=== PATIENT | female | born 1955 | race Caucasian/White ===

== ENCOUNTER → 2017-08-01 | Outpatient (REF) | payer OTHER | LOC: M SFHCPLAZ 13:52 | DX: Z53.8 Procedure and treatment not carried out for other reasons (principal); E78.1 Pure hyperglyceridemia; R73.09 Other abnormal glucose ==

== ENCOUNTER → 2017-09-11 | Outpatient (CLI) | payer OTHER ==
--- NOTE | 2017-09-11 17:23 | REPMRS ---
Patient History The patient states she has not had a clinical breast exam in over a year. Baseline Mammogram Patient is postmenopausal. Digital Woman Screen Mammo: September 11, 2017 - Exam #: [id number] Bilateral CC and MLO view(s) were taken. Technologist: Kim Jordan, Technologist FINDINGS: There are scattered fibroglandular densities. Baseline exam. There is a mild amount of residual fibroglandular tissue which is fairly symmetric. There is no dominant mass, architectural distortion, or clustered microcalcification suggestive of malignancy. There is a benign appearing intramammary node in the upper outer quadrant of the left breast. Scattered lymph nodes are seen in the axillae. ASSESSMENT: BI-RADS/ACR category 2 mammogram. Benign finding(s). Recommendation Routine screening mammogram in 1 year (for women over age 40). This mammogram was interpreted with the aid of an FDA-approved computer-aided dectection system. A. Negative x-ray reports should not delay biopsy if a dominant or clinically suspicious mass is present. B. Four to eight percent of cancers are not identified by mammography. C. Adenosis and dense breast may obscure an underlying neoplasm. Electronically Signed By: Peng Coreas MD 09/11/17 [id number]
== END ==
LOC: M WHC 13:35
DX: Z12.31 Encounter for screening mammogram for malignant neoplasm of breast (principal); Z78.0 Asymptomatic menopausal state

== ENCOUNTER 2022-05-03 15:46 | Emergency (ER) | payer MEDICARE, OTHER ==
[~2022-05-03] VITALS: Ht 165.1 cm; Wt 77.3 kg
[2022-05-03 16:54] LABS: BASO % 0.3 % (0.0-1.0); HEMATOCRIT 45.5 % (36.0-47.0); HEMOGLOBIN 15.4 g/dl (12.0-15.5); LYMPH # 0.8 10^3/uL (1.5-5.0); LYMPH % 6.6 % (24.0-44.0); MEAN CORPUSCULAR HEMOGLOBIN 28.9 pg (27.0-33.0); MEAN CORPUSCULAR HGB CONC 33.8 g/dl (32.0-36.5); MEAN CORPUSCULAR VOLUME 85.5 fl (80.0-96.0); MONO # 0.4 10^3/uL (0.0-0.8); NEUTROPHILS # 10.7 10^3/uL (1.5-8.5); NEUTROPHILS % 88.9 % (36.0-66.0); PLATELET COUNT, AUTOMATED 310 10^3/uL (150-450); RED BLOOD COUNT 5.32 10^6/uL (4.00-5.40); WHITE BLOOD COUNT 12.1 10^3/uL (4.0-10.0)
[2022-05-03] MEDS ORDERED: GI COCKTAIL 50ML BTL(HYOSCYAMINE/MAALOX/LIDOCAINE VISCOUS)(1:3:1) PO ONE (17:05)
[2022-05-03] MEDS ORDERED: ASPIRIN 81 MG CHEW TABLET PO ONE (17:05)
[2022-05-03 17:10] LABS: INR 0.93; PROTHROMBIN TIME 12.8 SECONDS (12.7-14.5)
[2022-05-03 17:11] LABS: PARTIAL THROMBOPLASTIN TIME 26.6 SECONDS (25.9-37.0)
[2022-05-03 17:25] LABS: CK-MB VALUE MASS 1.4 NG/ML (<3.6); MB/CK RELATIVE INDEX 1.56 (< OR =4)
[2022-05-03 17:33] LABS: ALT/SGPT 34 U/L (12-78); BILIRUBIN,DIRECT 0.2 MG/DL (0.0-0.2); BLOOD UREA NITROGEN 28 MG/DL (7-18); CALCIUM LEVEL 9.4 MG/DL (8.8-10.2); CARBON DIOXIDE LEVEL 26 MEQ/L (21-32); CHLORIDE LEVEL 108 MEQ/L (98-107); CREATININE FOR GFR 0.94 MG/DL (0.55-1.30); GLOMERULAR FILTRATION RATE > 60.0 (>45); GLUCOSE, FASTING 176 MG/DL (70-100); LIPASE 97 U/L (73-393); NT-PRO BNP 402 PG/ML (<125); POTASSIUM SERUM 4.2 MEQ/L (3.5-5.1); SODIUM LEVEL 141 MEQ/L (136-145); TOTAL PROTEIN 7.3 GM/DL (6.4-8.2)
[2022-05-03] MEDS ORDERED: ISOVUE-370 76% 100ML VIAL As Ordered ONE (17:46)
[2022-05-03 18:37] LABS: CK-MB VALUE MASS 1.1 NG/ML (<3.6); MB/CK RELATIVE INDEX 1.33 (< OR =4)
[2022-05-03 19:30] LABS: CK-MB VALUE MASS 1.2 NG/ML (<3.6); MB/CK RELATIVE INDEX 1.64 (< OR =4)
[2022-05-03 20:00] VITALS: BP 156/83
== END 2022-05-03 20:20 | disposition home or self-care (01) ==
LOC: M ED 15:46
DX: K29.70 Gastritis, unspecified, without bleeding (principal); M54.32 Sciatica, left side; R07.9 Chest pain, unspecified; Z90.49 Acquired absence of other specified parts of digestive tract
CPT/HCPCS: 36415; 71045; 71275; 80048; 80076; 82550; 82553; 83690; 83880; 84443; 84484; 85025; 85610; 85730; 93005; 93041; 94760; 99285; Q9967

== ENCOUNTER → 2022-05-07 | Outpatient (CLI) | payer MEDICARE | LOC: M SOG 08:21 | PROVIDERS: ATTEND Orthopaedic Surgery | DX: M48.061 Spinal stenosis, lumbar region without neurogenic claudication (principal); M51.36 Other intervertebral disc degeneration, lumbar region; M43.16 Spondylolisthesis, lumbar region ==

== ENCOUNTER → 2022-05-15 | Outpatient (REF) | payer MEDICARE ==
[2022-05-17 04:12] LABS: LDL DIRECT 140 mg/dL (0-99)
== END ==
LOC: M LAB REF 11:20
PROVIDERS: ATTEND Physician Assistant Medical
DX: Z13.220 Encounter for screening for lipoid disorders (principal)

== ENCOUNTER → 2022-05-28 | Outpatient (CLI) | payer MEDICARE | LOC: M WHC 07:53 | PROVIDERS: ATTEND Physician Assistant Medical | DX: Z12.31 Encounter for screening mammogram for malignant neoplasm of breast (principal) ==

== ENCOUNTER → 2022-10-18 | Outpatient (REF) | payer MEDICARE | LOC: M LAB REF 16:30 | PROVIDERS: ATTEND Physician Assistant Medical | DX: E78.5 Hyperlipidemia, unspecified (principal) ==

== ENCOUNTER → 2024-02-21 | Outpatient (REF) | payer MEDICARE ==
[2024-02-24 15:27] LABS: B. HENSELAE IgG (CAT SCRATCH) Negative titer (Neg:<1:320); B. HENSELAE IgM (CAT SCRATCH) Negative titer (Neg:<1:100); B. QUINTANA IgG (CAT SCRATCH) Negative titer (Neg:<1:320); B. QUINTANA IgM (CAT SCRATCH) Negative titer (Neg:<1:100)
== END ==
LOC: M LAB REF 12:19
PROVIDERS: ATTEND Physician Assistant Medical
DX: L03.116 Cellulitis of left lower limb (principal)

== ENCOUNTER → 2024-06-19 | Outpatient (CLI) | payer MEDICARE | LOC: M WUC 11:05 | PROVIDERS: ATTEND Physician Assistant Medical | DX: M17.0 Bilateral primary osteoarthritis of knee (principal); M25.561 Pain in right knee; M25.562 Pain in left knee ==

== ENCOUNTER → 2024-07-22 | Outpatient (REF) | payer MEDICARE | LOC: M LAB REF 16:26 | PROVIDERS: ATTEND Physician Assistant Medical | DX: E78.5 Hyperlipidemia, unspecified (principal) ==

== ENCOUNTER → 2024-12-21 | Outpatient (REF) | payer MEDICARE ==
[2024-12-21 14:10] LABS: RHEUMATOID FACTOR QUANT < 3.5 IU/ML (<14)
== END ==
LOC: M LAB REF 12:12
PROVIDERS: ATTEND Physician Assistant Medical
DX: M25.50 Pain in unspecified joint (principal); G60.9 Hereditary and idiopathic neuropathy, unspecified